=== PATIENT | female | born 1965 | race Caucasian/White ===

== ENCOUNTER 2021-04-10 09:20 | Emergency (ER) | payer OTHER ==
[~2021-04-10 09:20] MED LIST: ASPIRIN EC81 MG PO; PROZAC20 MG PO; TOPROL XL 50 MG50 MG PO; ZOCOR40 MG PO
[2021-04-10 10:39] LABS: BASOPHIL 0.2 % (0-2); EOSINOPHIL 0.1 % (0-5); HCT 43.9 % (37.0-47.0); HGB 14.3 g/dl (12.5-16.0); LYMPHOCYTE 8.3 % (15-48); MCH 29.4 pg (25.0-31.0); MCHC 32.6 g/dL (32.0-36.0); MCV 90.3 fL (78.0-100.0); MONOCYTE 2.8 % (0-12); NEUTROPHIL 88.2 % (41-80); NRBC 0; PLT 233 K/uL (150-400); RBC 4.86 M/uL (4.20-5.40); RDW 12.1 % (11.5-14.0); WBC 11.4 K/uL (4.0-10.5)
[2021-04-10 11:06] LABS: ALBUMIN 3.9 g/dL (3.4-5.0); ALKALINE PHOSHATASE 99 U/L (46-116); ALT 23 U/L (14-59); AST 15 U/L (15-37); BILIRUBIN - TOTAL 0.4 mg/dL (0.2-1.0); BUN 15 mg/dL (7-18); BUN/CREAT RATIO (CALC) 21.7 RATIO; CHLORIDE 102 mmol/L (98-107); CO2 (BICARBONATE) 29 mmol/L (21-32); CREATININE 0.69 mg/dL (0.51-0.95); GLOBULIN (CALCULATION) 3.6 g/dL; GLUCOSE 164 mg/dL (74-106); PHOSPHORUS 2.5 mg/dL (2.6-4.7); POTASSIUM 4.2 mmol/L (3.5-5.1); TOTAL PROTEIN 7.5 g/dL (6.4-8.2)
[2021-04-10 11:25] LABS: CORONAVIRUS 2019 SARS-COV-2 NEGATIVE (NEGATIVE); INFLUENZA A NAA NEGATIVE (NEGATIVE)
[2021-04-10 13:04] LABS: BILIRUBIN NEGATIVE (NEGATIVE); BLOOD 2+ Ery/uL (NEGATIVE); CLARITY CLEAR (CLEAR); COLOR YELLOW (YELLOW); GLUCOSE (U) NORMAL (NORMAL); LEUKOCYTES NEGATIVE Leu/uL (NEGATIVE); NITRITE NEGATIVE (NEGATIVE); PROTEIN NEGATIVE (NEGATIVE); UROBILINOGEN 0.2 mg/dL (0.2-1.0)
[2021-04-10 13:08] LABS: AMPHETAMINES NEGATIVE (NEGATIVE); BARBITURATES NEGATIVE (NEGATIVE); ECSTASY (MDMA) NEGATIVE (NEGATIVE); MARIJUANA (THC) POSITIVE (NEGATIVE); METHADONE NEGATIVE (NEGATIVE); OPIATES NEGATIVE (NEGATIVE); OXYCODONE NEGATIVE (NEGATIVE)
[2021-04-10 13:27] LABS: BACTERIA TRACE; URINARY WBC RARE
[2021-04-10] MEDS ORDERED: ONDANSETRON ODT4 MG PO (13:35)
== END 2021-04-10 13:40 | disposition home or self-care (01) ==
LOC: FER 09:20
PROVIDERS: Emergency Medicine
DX: B34.9 Viral infection, unspecified (principal); R31.9 Hematuria, unspecified; F12.10 Cannabis abuse, uncomplicated; I10 Essential (primary) hypertension; F17.210 Nicotine dependence, cigarettes, uncomplicated; Z79.82 Long term (current) use of aspirin; Z79.899 Other long term (current) drug therapy; Z20.822 Contact with and (suspected) exposure to COVID-19
CPT/HCPCS: 36415; 70450; 71045; 80053; 80305; 81001; 84100; 84484; 85025; 93005; J2405; J7030; U0002

== ENCOUNTER 2021-09-08 07:30 | Emergency (ER) | payer OTHER ==
[~2021-09-08 07:30] MED LIST changes: +ONDANSETRON ODT4 MG PO
[2021-09-08 08:25] LABS: BASOPHIL 0.2 % (0-2); EOSINOPHIL 0 % (0-5); HCT 47.2 % (37.0-47.0); HGB 15.3 g/dl (12.5-16.0); LYMPHOCYTE 8.4 % (15-48); MCH 29.1 pg (25.0-31.0); MCHC 32.4 g/dL (32.0-36.0); MCV 89.9 fL (78.0-100.0); MONOCYTE 5.9 % (0-12); MPV 9.5 fL (6.0-9.5); NEUTROPHIL 84.8 % (41-80); NRBC 0; PLT 289 K/uL (150-400); RBC 5.25 M/uL (4.20-5.40); RDW 12.8 % (11.5-14.0); WBC 17.7 K/uL (4.0-10.5)
[2021-09-08 08:32] LABS: BILIRUBIN NEGATIVE (NEGATIVE); BLOOD 3+ Ery/uL (NEGATIVE); CLARITY CLEAR (CLEAR); COLOR YELLOW (YELLOW); GLUCOSE (U) NORMAL (NORMAL); LEUKOCYTES NEGATIVE Leu/uL (NEGATIVE); NITRITE NEGATIVE (NEGATIVE); PROTEIN TRACE (LOW) mg/dL (NEGATIVE); UROBILINOGEN 0.2 mg/dL (0.2-1.0)
[2021-09-08 08:44] LABS: ALBUMIN 4.2 g/dL (3.4-5.0); BILIRUBIN - TOTAL 0.5 mg/dL (0.2-1.0); BUN/CREAT RATIO (CALC) 27.9 RATIO; CREATININE 0.68 mg/dL (0.51-0.95); GLOBULIN (CALCULATION) 3.9 g/dL; POTASSIUM 3.4 mmol/L (3.5-5.1); TOTAL PROTEIN 8.1 g/dL (6.4-8.2)
[2021-09-08 08:47] LABS: LACTIC ACID 3.2 mmol/L (0.4-1.9)
[2021-09-08 08:53] LABS: SQUAMOUS EPITHELIAL CELLS 20-50
[2021-09-08 08:54] LABS: BACTERIA 1+; MUCOUS MODERATE
[2021-09-08] MEDS ORDERED: ONDANSETRON ODT4 MG PO (12:01)
[2021-09-08] MEDS ORDERED: PROTONIX 40MG T40 MG PO (12:01)
== END 2021-09-08 12:34 | disposition home or self-care (01) ==
LOC: FER 07:30
PROVIDERS: Emergency Medicine
DX: R10.9 Unspecified abdominal pain (principal); R11.2 Nausea with vomiting, unspecified; K21.9 Gastro-esophageal reflux disease without esophagitis; I10 Essential (primary) hypertension; Z88.5 Allergy status to narcotic agent
CPT/HCPCS: 36415; 80053; 81001; 83605; 83690; 85025; 93005; J2405; J2543; J7030; Q9967